=== PATIENT | female | born 1960 | race Two or more races ===

== ENCOUNTER → 2016-07-15 | Outpatient (CLI) | payer OTHER ==
[~2016-07-15] MED LIST: AMLODIPINE BESYL5 MG PO; BAYER CHEWABLE81 MG PO; ELESTRIN144 GM TD; HYDROCHLOROTHIA25 MG PO; LISINOPRIL-HCTZ1 T14 PO; SUMATRIPTAN SU100 MG PO; TOPIRAMATE50 MG PO
--- NOTE | ~2016-07-15 | CR58 ---
[facility] A Service of [facility] & [facility] / [facility] RADIOLOGY TEXT RESULTS PATIENT: LAZARA GRIGGS LOCATION: [facility] : 62 UNIT #: [id number] AGE: [address]: LESTER CHAN SEX: F ORDER DR: [id number] [facility] [address] [place], [place] [address] [id number] O MR#: [id number] Acc #: [id number] NAME: LAZARA GRIGGS : 1960 SEX: F STUDY DATE/TIME: 07/15/2016 8:39 UNIT: [facility] ROOM: STUDY DESCRIPTION: CR Cervical Spine 2 or 3 Views Attending Physician: Eliana West Referring Physician: Eliana West Ordering Physician: Eliana West Primary Care Physician: Melissa Dan M.D. MEDICAL IMAGING REPORT This report is preliminary unless electronic signature is present EXAM Cervical spine 3 views, 07/15/2016 HISTORY Neck pain for 1 week with no known injury. FINDINGS 3 views of the cervical spine demonstrate no fracture. There is degenerative change with mild disc space narrowing at C4-5, C5-6 and C6-7. Anterior and posterior osteophytes are seen from C3-C6 and there is degenerative change involving the articular facets. There is no retropharyngeal soft tissue swelling. IMPRESSION Mild degenerative change in the cervical spine. No acute abnormality. Dictated by... Delmar Brown M.D. THIS IS AN ELECTRONICALLY VERIFIED REPORT Delmar Brown M.D. at 07/16/2016 8:11 AM JOCE/lucio TD: 07/15/2016 11:56 JOB #: [id number] MEDICAL IMAGING REPORT Page 1 of 1 COPY
== END | disposition home or self-care (01) ==
LOC: CRAD 08:13
DX: M54.2 Cervicalgia (principal); M47.812 Spondylosis without myelopathy or radiculopathy, cervical region
CPT/HCPCS: 72040